=== PATIENT | male | born 1990 | race Caucasian/White ===

== ENCOUNTER 2018-07-23 14:37 | Emergency (ER) | payer OTHER, SELFPAY ==
--- NOTE | 2018-07-23 14:39 | W.ED.GENAD ---
Discharge Plan Disposition Patient Disposition: HOME Condition: Stable Discharge Details Chief Complaint: Abd Prob Clinical Impression: Abdominal pain ED Provider: Junaid Smith Discharge Instructions Instructions: Abdominal Pain (ED) Additional Instructions: Based on your lab work being normal, your physicial exam and cat scan being normal I suspect your symptoms are due to gastritis or an ulcer Follow up with your primary care provider in 1-2 weeks especially if symptoms continue if you feel your pain is significantly worse or you have new symptoms such as persistent vomit return to the emergency department for reevaluation Medical Decision Making 27 yo male who states he has a hx of gastritis/ulcers, and colitis, comes in with chief complaint of abdominal pain when he doesn't eat for a few horus. He denies vomit and has no pain now. Has no distention of the abdomen. I suspect his pain is due to duodenal ulcer given his pain comes on when he goes periods without eating. I did not feel any lab work or imaging indicated but the pt was very insistent on having lab work and a ct done despite me going over risks of radiatoin and has capacity to make his own decisions and still wants to have one done. Will order this and monitor. labs and imagagin per Dr. Minaya unremarkable. Will add carafate as I suspect ulcer and advised f/u with pcp and return precautions given Differential Diagnosis gastritis, duodenal ulcer, colitis Imaging Data Radiologic Study: Attestation: I personally reviewed and interpreted this imaging study as follows: Imaging: CT Scan Radiologist's impression: no acute findings per Dr. Minaya Lab Data Lab results reviewed: Yes I reviewed the patient's lab results. HPI General Mode of arrival: ambulatory. Date/Time Provider Initiated Documentation: 07/23/18 14:39. Limitations to Documentation: no limitations. Information obtained by: patient. History of Present Illness 27 year old M presents to the emergency department with the chief complaint of abdominal pain, described as moderate, with intensity rated at 5. Quality is described as burning, and it has been now resolved. No relieving factors improve symptom(s), No exacerbating factors reported . Patient notes no other symptoms.. Review of Systems Review of Systems All systems reviewed & are unremarkable except as noted in HPI and below Constitutional Denies weakness ENT Denies change in voice Cardiovascular Denies chest pain and Denies dyspnea Respiratory Denies dyspnea Gastrointestinal Denies vomiting Genitourinary Denies dysuria Musculoskeletal Denies joint swelling Integumentary/Breasts Denies rash Neurologic Denies weakness Exam Const General: no acute distress Orientation: alert HENMT Head: normal to inspection Ears: external ears normal General nose exam: external nose normal Mouth: moist mucous membranes Eyes General: appearance normal, both eyes and all related structures Neck Neck: normal visual inspection Resp Effort & Inspection: normal respiratory effort and able to speak in complete sentences Cardio Rate: regular rate GI Inspection: normal to inspection Palpation: soft Skin General skin exam: no rashes or lesions noted Neuro General: alert and oriented x3 Extrem General: normal to inspection Psych Mental Status: mental status grossly normal
[2018-07-23 14:41] VITALS: BP 151/90; PULSE 96; RESP 16; TEMP 37; O2SAT 98
--- NOTE | 2018-07-23 14:51 | DI.CT_ITS ---
SYMPTOMS/DIAGNOSIS: UPPER ABDOMINAL PAIN CT SCAN OF THE ABDOMEN AND PELVIS: CT scan of the abdomen and pelvis was performed following the uneventful administration of intravenous contrast material. There are no priors for comparison. The lung bases are clear. The liver is unremarkable. The portal, superior mesenteric and splenic veins are patent. The gallbladder is negative. There is no biliary ductal dilatation. The pancreas, spleen and adrenal glands are unremarkable. The kidneys show normal and symmetric enhancement. No evidence of a solid renal mass or obstruction. The urinary bladder is intact. The reproductive organs are unremarkable. The aorta is of normal caliber. No significant abdominal or pelvic adenopathy, ascites or pneumoperitoneum is present. The bowel shows no evidence of obstruction or inflammation. There is a normal appendix present. The lumbar spine shows no acute abnormality. IMPRESSION: No evidence of an acute abdomen. The findings were discussed with the Emergency Department on the date of the examination.
--- NOTE | 2018-07-23 14:56 | ED.GENADUL_ITS ---
Discharge Plan Disposition Patient Disposition: HOME Condition: Stable Discharge Details Chief Complaint: Abd Prob Clinical Impression: Abdominal pain ED Provider: Junaid Smith Discharge Instructions Instructions: Abdominal Pain (ED) Additional Instructions: Based on your lab work being normal, your physicial exam and cat scan being normal I suspect your symptoms are due to gastritis or an ulcer Follow up with your primary care provider in 1-2 weeks especially if symptoms continue if you feel your pain is significantly worse or you have new symptoms such as persistent vomit return to the emergency department for reevaluation Medical Decision Making 27 yo male who states he has a hx of gastritis/ulcers, and colitis, comes in with chief complaint of abdominal pain when he doesn't eat for a few horus. He denies vomit and has no pain now. Has no distention of the abdomen. I suspect his pain is due to duodenal ulcer given his pain comes on when he goes periods without eating. I did not feel any lab work or imaging indicated but the pt was very insistent on having lab work and a ct done despite me going over risks of radiatoin and has capacity to make his own decisions and still wants to have one done. Will order this and monitor. labs and imagagin per Dr. Minaya unremarkable. Will add carafate as I suspect ulcer and advised f/u with pcp and return precautions given Differential Diagnosis gastritis, duodenal ulcer, colitis Imaging Data Radiologic Study: Attestation: I personally reviewed and interpreted this imaging study as follows: Imaging: CT Scan Radiologist's impression: no acute findings per Dr. Minaya Lab Data Lab results reviewed: Yes I reviewed the patient's lab results. HPI General Mode of arrival: ambulatory . Date/Time Provider Initiated Documentation: 07/23/18 14:39 . Limitations to Documentation: no limitations . Information obtained by: patient . History of Present Illness 27 year old M presents to the emergency department with the chief complaint of abdominal pain, described as moderate, with intensity rated at 5. Quality is described as burning, and it has been now resolved. No relieving factors improve symptom(s), No exacerbating factors reported . Patient notes no other symptoms.. Review of Systems Review of Systems All systems reviewed & are unremarkable except as noted in HPI and below Constitutional Denies weakness ENT Denies change in voice Cardiovascular Denies chest pain and Denies dyspnea Respiratory Denies dyspnea Gastrointestinal Denies vomiting Genitourinary Denies dysuria Musculoskeletal Denies joint swelling Integumentary/Breasts Denies rash Neurologic Denies weakness Exam Const General: no acute distress Orientation: alert HENMT Head: normal to inspection Ears: external ears normal General nose exam: external nose normal Mouth: moist mucous membranes Eyes General: appearance normal, both eyes and all related structures Neck Neck: normal visual inspection Resp Effort & Inspection: normal respiratory effort and able to speak in complete sen tences Cardio Rate: regular rate GI Inspection: normal to inspection Palpation: soft Skin General skin exam: no rashes or lesions noted Neuro General: alert and oriented x3 Extrem General: normal to inspection Psych Mental Status: mental status grossly normal
[2018-07-23] MEDS: Normal Saline 1,000 ML 1000 ML IV (14:59)
[2018-07-23 15:04] LABS: Abs Immature Grans 0.02 k/cumm (0.0-0.09); Absolute Basophil Count 0.03 k/cumm (0.0-0.2); Absolute Eosinophil Count 0.07 k/cumm (0.0-0.7); Absolute Lymphocyte Count 2.18 k/cumm (1.2-3.4); Absolute Monocyte Count 0.56 k/cumm (0.11-0.7); Absolute Neutrophil Count 5.79 k/cumm (1.2-6.7); Basophils % 0.3; Eosinophils % 0.8; HCT 45.8 % (40.0-50.0); HGB 15.8 g/dL (13.5-17.5); Immature Grans % 0.2; Lymphocytes % 25.2; Mean Corp. HGB Concentration 34.5 g/dL (32.0-36.0); Mean Corpuscular Hemoglobin 30.3 pg (27.0-33.0); Mean Corpuscular Volume 87.9 fL (80-95); Mean Platelet Volume 10.5 fL (8.0-11.0); Monocytes % 6.5; Platelet Count 250 x1000/uL (130-400); RBC 5.21 m/cumm (4.50-6.00); RBC Distribution Width 12.5 % (11.8-14.1); White Blood Cell Count 8.65 k/cumm (4.4-10.8)
[2018-07-23 15:23] LABS: ALT 23 U/L (12-78); AST 12 U/L (15-37); Albumin 4.6 g/dL (3.4-5.0); Alkaline Phosphatase 75 U/L (46-116); Anion Gap 8.1 mmol/L (3-11); BUN 14 mg/dL (7-18); Bilirubin, Direct 0.17 mg/dL (0.00-0.20); Bilirubin, Total 0.9 mg/dL (0.2-1.0); CO2 30.9 mmol/L (21.0-32.0); CREATININE 1.03 mg/dL (0.70-1.30); Calcium 10.1 mg/dL (8.5-10.1); Chloride 100 mmol/L (98-107); Glucose 100 mg/dL (70-100); Lipase 81 U/L (73-393); Potassium 4.2 mmol/L (3.5-5.1); Sodium 139 mmol/L (136-145); Total Protein 8.7 g/dL (6.4-8.2)
[2018-07-23] MEDS: Omnipaque 350 MG/ML 100 ML BTL IJ (15:29)
[2018-07-23 16:10] VITALS: BP 124/77; PULSE 96; RESP 16; TEMP 37; O2SAT 98
== END 2018-07-23 16:09 | disposition home or self-care (01) ==
LOC: ER 17:46
PROVIDERS: Emergency Provider Emergency Medicine
DX: K52.9 Noninfective gastroenteritis and colitis, unspecified (principal)
CPT/HCPCS: 36415; 80053; 80076; 83690; 96360; 99285; 74177; 85025; 85379; 99284; J3490

== ENCOUNTER 2020-02-28 19:15 | Outpatient (REF) | payer MEDICAID, SELFPAY ==
[2020-02-28 19:53] LABS: HCT 40.4 % (40.0-50.0)
[2020-02-28 20:12] LABS: Anion Gap 8.7 mmol/L (3-11); BUN 18 mg/dL (7-18); CO2 27.3 mmol/L (21.0-32.0); CREATININE 1.01 mg/dL (0.70-1.30); Calcium 10.1 mg/dL (8.5-10.1); Calculated LDL 119 mg/dL (<100); Chloride 106 mmol/L (98-107); Cholesterol 166 mg/dL (<200); Glucose 80 mg/dL (74-106); HDL Cholesterol 40 mg/dL (40-60); Potassium 4.1 mmol/L (3.5-5.1); Sodium 142 mmol/L (136-145); Triglyceride 35 mg/dL (<150)
== END 2020-02-28 19:35 ==
LOC: NCHCN 19:15
PROVIDERS: PCP Physician Assistant; Visit Provider Physician Assistant
DX: Z13.220 Encounter for screening for lipoid disorders (principal); Z13.228 Encounter for screening for other metabolic disorders
CPT/HCPCS: 80048; 80061; 85014; 85018

== ENCOUNTER 2021-11-05 14:52 | Emergency (ER) | payer MEDICAID, SELFPAY ==
[2021-11-05] VITALS (14 sets, daily range): BP systolic 143–154; BP diastolic 73–96; PULSE 76–109; RESP 20; TEMP 36.6; O2SAT 95–100
--- NOTE | 2021-11-05 15:22 | DI.CT_ITS ---
Exam(s) CT CHEST/ABD/PEL W EXAM: CT CHEST/ABD/PEL W CLINICAL HISTORY: hx colitis, bloody diarrhea, cough w/ black stool. TECHNIQUE: Imaging Protocol: Axial computed tomography images with coronal and sagittal reformatted images were created and reviewed CONTRAST MATERIAL: Intravenous: Omnipaque 350 Contrast volume:100 ml Oral: no FINDINGS: CHEST: Tracheobronchial tree: Patent where visualized. Mediastinum and Coleen: No dominant adenopathy or fluid collection. Pulmonary parenchyma: No consolidation or dominant measurable mass. Pleura: No effusion or pneumothorax. Lymph nodes: Within normal limits. Aorta: Thoracic portion non-dilated. Heart: Normal. Bones: Mild scoliosis.. No lytic or blastic lesions. ABDOMEN: Liver: Normal density. No measurable mass. Gallbladder and biliary tract: No radiodense calculus or dilation. Pancreas: Normal density, no abnormal calcifications or inflammatory process. Spleen: Normal. Kidneys: Normal size, contour and axis. Punctate stone mid to lower pole right kidney. No obstructiv e uropathy. No masses seen. Adrenal glands: No masses seen. Aorta: Abdominal portion non-dilated. Lymph nodes: Within normal limits. Soft tissues: Unremarkable. PELVIS: Bladder: Symmetric distention, no gross wall thickening. Bowel: Normal quantity of stool. No visible mass. No obstruction or bowel wall thickening. Appendix normal. Peritoneal cavity: No ascites, collection or mesenteric inflammatory response. Bones: Unremarkable for age.. Reproductive organs: Within normal limits. IMPRESSION: No acute abnormality in the chest abdomen or pelvis.. Results of this exam have been verbally communicated with emergency department provider. RADIATION DOSE DELIVERED: Total DLP DATA REPOSITORY: All CT scans at this facility are submitted to the National Radiology Data Registry (NRDR) Dose Index Registry (DIR) with the [employer] (A[employer]). RADIATION OPTIMIZATION: All CT scans at this facility use at least one of these dose optimization te chniques: automated exposure control; mA and/or kV adjustment per patient size (includes targeted exa ms where dose is matched to clinical indication); or iterative reconstruction.
--- NOTE | 2021-11-05 15:26 | ED.GENADUL_ITS ---
Discharge Plan Disposition Patient Disposition: HOME Condition: Good Discharge Details Clinical Impression: Fatigue, Frequent loose stools, Dehydration Primary Care Provider: Feliciano Pierson ED Provider: Ernie Kowalski Home Meds and New Rx's Prescriptions: Continued clonazepam 0.5 mg Tablet 0.5 mg PO TID 0RF omeprazole 40 mg Capsule,Delayed Release(Dr/Ec) 40 mg PO DAILY AM 0RF amoxicillin 500 mg Tablet 1,000 mg PO 0RF Rx Instructions: directed by dentist Discharge Instructions Instructions: Dehydration (ED), Acute Diarrhea (ED) Additional Instructions: As soon as you have a bowel movement, please bring it in for evaluation with the lab slips that we have given you please continue drinking plenty of fluids, I recommend 10 to 12 cups of water per day. Stay well-hydrated. Eat a high-fiber diet to help solidify your stools. If you notice any worsening of your symptoms, or any new symptoms such as vomiting, diarrhea, fever, chills, shortness of breath, chest pain, numbness, weakness, or fainting , please return immediately to the emergency department for reevaluation. Please follow up with your primary care provider as soon as possible for reassessment and reevaluation. As always, it was a pleasure participating in your medical care today. Referrals: Feliciano Pierson [Primary Care Provider] - Medical Decision Making 30-year-old male with a past medical history of previous colitis, depression, who presents today for evaluation of cough, diarrhea, weakness, fatigue, notable malaise. Patient has not received a vaccine for COVID with the flu. Patient states that for the last 4-week he has had cough and diarrhea. He states his diarrhea has had 4-5 episodes of stooling per day. It is watery and partially formed in nature. He states that there is a notable amount of black stool that is present. He has a history of colitis and states that this looks similar. He denies any hematochezia or raffaele blood. He denies any vomiting. He does admit to mild upset stomach feeling, but denies any significant pain. He describes as gurgling. In regards to the cough he admits that it is productive, it is mild in nature. He admits to occasional black sputum. He denies any fever or chills but does feel extremely fatigued. Patient does smoke marijuana but recently stopped when his cough began 4 weeks ago. He denies any other illicit drug use otherwise. He denies any recent foreign travel. No camping. He did just have a tooth pulled today, and was started on antibiotic amoxicillin for it. He had not been on an antibiotic prior though. No other c omplaints at this time. Physical exam demonstrates a nonsurgical appearing abdomen. Mild achiness on palpation of the left lower quadrant. Lung sounds are clear. Mucosa is dry. Differential includes a viral etiology, including COVID or flu. However with his history of colitis this may also be a component to. There may be multiple things going on together as he has become notably more fatigued and malaised over the last few days. We will get a CT scan of the abdomen to evaluate for presence of colitis, and we will get imaging of the chest to evaluate for evidence of pneumonia. He otherwise has no chest pain or shortness of breath. No chest heaviness or tightness. Symptoms inconsistent with ACS or pulmonary embolism. COVID-pneumonia or atypical pneumonia are high on the differential. 5:38 PM Patient is feeling much better, repeat abdominal exam shows no abdominal tenderness. Patient feels well, energy has improved. Laboratory results and/or images were reviewed. Pertinent findings were reviewed with care team and discussed with patient. And work-up are notably unremarkable, hemoglobin stable, heart rate has normalized. No bandemia or left shift. Electrolytes stable, no signs of significant dehydration. Urinalysis negative for evidence of infection, flu, COVID, and RSV are negative. Patient has not been able to have a bowel movement here. We will send him home with a lab slip. CT scan shows no evidence of acute process. There is a small nonobstructing kidney stone in the right kidney, but the patient has no pain here. Otherwise with a stable work-up, patient is stable for discharge. Suspect mild dehydration secondary to persistent diarrhea. But no signs of GI bleed. No diarrhea here, and rectal exam was negative for any stool or blood. Recommend high-fiber diet, plenty of fluids at home, and close follow-up with PCP. Discussed red flags which return. I have extensively reviewed the treatment plan and discharge instructions with the patient. I have addressed all patient concerns at this time. The patient was made aware of what symptoms to monitor for that would warrant a return to the emergency department. Discussed the plan with the patient, they demonstrate verbal understanding and agreement with our assessment and plan at this time. The documentation in this chart was dictated using [employer] dictation software. Please excuse any dictation errors. FINDINGS: CHEST: Tracheobronchial tree: Patent where visualized. Mediastinum and Coleen: No dominant adenopathy or fluid collection. Pulmonary parenchyma: No consolidation or dominant measurable mass. Pleura: No effusion or pneumothorax. Lymph nodes: Within normal limits. Aorta: Thoracic portion non-dilated. Heart: Normal. Bones: Mild scoliosis.. No lytic or blastic lesions. ABDOMEN: Liver: Normal density. No measurable mass. Gallbladder and biliary tract: No radiodense calculus or dilation. Pancreas: Normal density, no abnormal calcifications or inflammatory process. Spleen: Normal. Kidneys: Normal size, contour and axis. Punctate stone mid to lower pole right kidney. No obstructive uropathy. No masses seen. Adrenal glands: No masses seen. Aorta: Abdominal portion non-dilated. Lymph nodes: Within normal limits. Soft tissues: Unremarkable. PELVIS: Bladder: Symmetric distention, no gross wall thickening. Bowel: Normal quantity of stool. No visible mass. No obstruction or bowel wall thickening. Appendix normal. Peritoneal cavity: No ascites, collection or mesenteric inflammatory response. Bones: Unremarkable for age.. Reproductive organs: Within normal limits. IMPRESSION: No acute abnormality in the chest abdomen or pelvis.. Results of this exam have been verbally communicated with emergency department provider. HPI General Date/Time Provider Initiated Documentation: 11/05/21 14:56 . HPI Narrative: 30-year-old male with a past medical history of previous colitis, depression, who presents today for evaluation of cough, diarrhea, weakness, fatigue, notable malaise. Patient has not received a vaccine for COVID with the flu. Patient states that for the last 4-week he has had cough and diarrhea. He states his diarrhea has had 4-5 episodes of stooling per day. It is watery and partially formed in nature. He states that there is a notable amount of black stool that is present. He has a history of colitis and states that this looks similar. He denies any hematochezia or raffaele blood. He denies any vomiting. He does admit to mild upset stomach feeling, but denies any significant pain. He describes as gurgling. In regards to the cough he admits that it is productive, it is mild in nature. He admits to occasional black sputum. He denies any fever or chills but does feel extremely fatigued. Patient does smoke marijuana but recently stopped when his cough began 4 weeks ago. He denies any other illicit drug use otherwise. He denies any recent foreign travel. No camping. He did just have a tooth pulled today, and was started on antibiotic amoxicillin for it. He had not been on an antibiotic prior though. No other complaints at this time. Related Data Home Medications Medication Instructions Recorded Confirmed amoxicillin 500 mg tablet 1,000 mg PO 11/05/21 clonazepam 0.5 mg tablet 0.5 mg PO TID 11/05/21 11/05/21 omeprazole 40 mg capsule,delayed 40 mg PO DAILY AM 11/05/21 11/05/21 release Allergies Allergy/AdvReac Type Severity Reaction Status Date / Time No Known Allergies Allergy Unverified 11/05/21 15:08 General Stated Complaint: Nausea/Vomit/Diar NATHANIEL: 3 Review of Systems All systems reviewed & are unremarkable except as noted in HPI and below PFSH All Active Problems (Updated 11/05/21 @ 17:35 by Ernie Kowalski DO) Fatigue (Acute) Frequent loose stools (Acute) Dehydration (Acute) Social History Smoking/Tobacco Use Status: Former Tobacco Use Smoking risk assessment performed?: Yes Alcohol Intake: never Drug use: Never Do you feel safe in your relationship?: Yes Exam Narrative Exam Narrative: 1.Const: Well-nourished, Well-developed, appearing stated age 2.Eyes: PERRL, no conjunctival injection, and symmetrical lids. 3.ENT: Atraumatic external nose and ears. Dry MM. Neck: Symmetric, trachea midline, No thyromegaly. 4.CVS: +S1/S2, No murmurs or gallops. Peripheral pulses 2+ and equal in all extremities. Brisk capillary refill in all extremities. 5.RESP: Unlabored respiratory effort. Clear to auscultation bilaterally. No wheezes rales or rhonchi 6.GI: Soft, minimal achiness in the left lower quadrant. No significant tenderness. No guarding or rebound. Bowel sounds are notably active. Rectal exam demonstrates no evidence of fissures or lesions or anal tags. No gross blood. Hemoccult was negative. 7.MSK: Normocephalic/Atraumatic, Extremities w/o deformity or ttp No cyanosis or clubbing, Normal movement of all extremities 8.Skin: Warm, Dry. No rashes or lesions. 9.Neuro: manager corporate marketing II-XII grossly intact. Sensation grossly intact, no focal neurologic deficits. 10.Psych: (AAO) x3. Appropriate mood and affect Course Vital Signs Vital signs: Vital Signs Temperature 36.6 C 11/05/21 15:03 Pulse 109 H 11/05/21 15:03 Respiratory Rate 20 11/05/21 15:03 Blood Pressure 143/96 H 11/05/21 15:03 Pulse Oximetry 99 11/05/21 15:03 Temperature 36.6 C 11/05/21 15:03 Temperature Source Temporal Artery Scan 11/05/21 15:03 Pulse 109 H 11/05/21 15:03 Respiratory Rate 20 11/05/21 15:03 Respiratory Effort 11/05/21 15:10 Blood Pressure 143/96 H 11/05/21 15:03 Blood Pressure Position Supine 11/05/21 15:03 Pulse Oximetry 99 11/05/21 15:03 Oxygen Delivery Method Room Air 11/05/21 15:03 Oxygen Flow Rate 0 11/05/21 15:03 Pain Level 0 11/05/21 15:03
[2021-11-05 15:38] LABS: Abs Immature Grans 0.02 10^3/uL (0.0-0.06); Absolute Basophil Count 0.03 10^3/uL (0.0-0.2); Absolute Eosinophil Count 0.03 10^3/uL (0.0-0.7); Absolute Lymphocyte Count 2.49 10^3/uL (1.2-3.4); Absolute Monocyte Count 0.57 10^3/uL (0.1-0.8); Absolute Neutrophil Count 6.98 10^3/uL (1.2-6.7); Basophils % 0.3; Eosinophils % 0.3; HCT 40.2 % (40.0-50.0); HGB 14.1 g/dL (13.5-17.5); Immature Grans % 0.2; Lymphocytes % 24.6; MCH 30.5 pg (27.0-33.0); MCHC 35.1 % (32.0-36.0); MCV 87 fL (80-95); MPV 10.8 fL (8.0-11.0); Monocytes % 5.6; Platelet Count 266 10^3/uL (130-400); RBC 4.62 10^6/uL (4.36-5.78); RDW 12.5 % (11.8-14.1); RDW-SD 39.5 fL; WBC 10.12 10^3/uL (4.4-10.8)
[2021-11-05] MEDS: Normal Saline 1,000 ML 1000 ML IV (15:45)
[2021-11-05] MEDS: Dicyclomine 10 MG CAP PO (15:45)
[2021-11-05 16:02] LABS: Ammonia 14 umol/L (11-32)
[2021-11-05 16:25] LABS: ALT 30 U/L (16-63); AST 20 U/L (15-37); Albumin 4.8 g/dL (3.4-5.0); Alkaline Phosphatase 78 U/L (46-116); Anion Gap 11.2 mmol/L (3-11); BUN 9 mg/dL (7-18); Bilirubin, Total 0.7 mg/dL (0.2-1.0); CO2 24.8 mmol/L (21.0-32.0); COVID-19 PCR Negative (Negative); Chloride 104 mmol/L (98-107); Glucose 96 mg/dL (74-106); Influenza A PCR Negative (Negative); Influenza B PCR Negative (Negative); Potassium 3.9 mmol/L (3.5-5.1); RSV PCR Negative (Negative); Sodium 140 mmol/L (136-145)
[2021-11-05 16:26] LABS: Source Nasopharynx
[2021-11-05] MEDS: Omnipaque 350 MG/ML 100 ML BTL IJ (16:32)
[2021-11-05] MEDS: Normal Saline Flush 10 ML SYR IVP (16:33)
[2021-11-05 17:30] LABS: Bilirubin Negative (Negative); Blood Negative (Negative); Clarity Clear (Clear); Glucose Negative (Negative); Ketones Negative (Negative); Leukocyte Esterase Negative (Negative); Nitrite Negative (Negative); Specific Gravity >= 1.030 (1.005-1.025); Urobilinogen 0.2 EU/dL (Up TO 0.2); pH 6.5 (5-8)
== END 2021-11-05 17:49 | disposition home or self-care (01) ==
PROVIDERS: Emergency Provider Student in an Organized Health Care Education/Training Program; PCP Physician Assistant
DX: R53.83 Other fatigue (principal); R19.7 Diarrhea, unspecified; E86.0 Dehydration; R10.32 Left lower quadrant pain; R05.1 Acute cough
CPT/HCPCS: 36415; 74177; 80053; 87329; 87637; 96360; 99285; 71260; 81003; 82140; 85025; J3490

== ENCOUNTER 2021-11-26 19:14 | Outpatient (REF) | payer MEDICAID, SELFPAY ==
[2021-11-28 09:53] LABS: Hepatitis C Ab w Rflx HCV PCR Negative (Negative)
[2021-11-28 10:03] LABS: HIV-1/2 Ag & Ab Screen Negative (Negative)
== END 2021-11-26 19:15 | disposition home or self-care (01) ==
LOC: NCHCN 19:14
PROVIDERS: PCP Physician Assistant; Visit Provider Physician Assistant
DX: Z11.4 Encounter for screening for human immunodeficiency virus [HIV] (principal); Z11.59 Encounter for screening for other viral diseases
CPT/HCPCS: 86803; 87389

== ENCOUNTER 2021-12-23 09:58 | Inpatient (IN) | payer MEDICAID, SELFPAY ==
[2021-12-23 10:02] VITALS: BP 152/93; PULSE 90; RESP 17; TEMP 36.7; O2SAT 98
--- NOTE | 2021-12-23 10:22 | ED.GENADUL_ITS ---
Discharge Plan Disposition Patient Disposition: [facility] INPATIENT Condition: Stable Discharge Details Clinical Impression: Homicidal ideation, Psychiatric care Admit Date/Time: 12/23/21 12:49 Admit Provider: Sunny Livingston Attending Provider: Sunny Livingston Primary Care Provider: Feliciano Pierson ED Provider: Isabel Aviles Discharge Data Discharge Date/Time-TO BE ENTERED AT DEPARTURE: 12/23/21 13:28 Medical Decision Making 31-year-old male presents to the ER company by [facility] for suicidal and homicidal statements made via text prior to arrival. Patient reports that over the last few days she is been more anxious and depressed he also reports some increased tooth pain and some dental issues. He has been in contact with [facility] over the last few days. He was told that there was a warrant out for him. He denies taking anything or doing anything to harm himself for the last few days. He is alert oriented upon arrival. He does appear depressed and anxious, lack of eye contact. Upon initial presentation he is cooperative. Patient initially denies sending the homicidal text regarding his mother's boyfriend however he does endorse that he stated if he comes near me I will kill him. Past medical history includes anxiety depression and GERD. Patient reports he takes Klonopin up to 3 times daily as needed for anxiety and has been trying to wean himself off recently. Patient also reports that he stopped using marijuana 1 to 2 weeks ago. 1040: According to the [facility] medical clearance form patient is medically cleared. NEDRA called Kadi called back and will be coming in to evaluate patient. Interim behavioral safety plan and C PSO ordered patient is in line of sight of nurses station placed in paper scrubs and belongings were collected by medical staff coordinator. 1205: Spoke with Kadi with [facility] Mental health liason regarding patient she reports that they will be seeking voluntary placement at this time. She reports they wish to be notified of patient tries to leave. At this time patient has remained cooperative and calm. 1233: Hospitalist paged to request admission for observation for psychiatric voluntary placement. 1247: Spoke with Dr. Canela regarding patient case and details he agrees to accept patient for admission for observation pending psychiatric placement. Discussed plan of care with patient who verbalizes understanding and is in agreement with the plan. HPI General Mode of arrival: ambulatory . Date/Time Provider Initiated Documentation: 12/23/21 09:59 . Limitations to Documentation: no limitations . Information obtained by: patient, RN notes reviewed and old records reviewed . HPI Narrative: 31-year-old male presents to the ER company by [facility] for suicidal and homicidal statements made via text prior to arrival. Patient reports that over the last few days she is been more anxious and depressed he also reports some increased tooth pain and some dental issues. He has been in contact with [facility] services over the last few days. He was told that there was a warrant out for him. He denies taking anything or doing anything to harm himself for the last few days. He is alert oriented upon arrival. He does appear depressed and anxious, lack of eye contact. Upon initial presentation he is cooperative. Patient initially denies sending the homicidal text regarding his mother's boyfriend however he does endorse that he stated if he comes near me I will kill him. Past medical history includes anxiety depression and GERD. Patient reports he takes Klonopin up to 3 times daily as needed for anxiety and has been trying to wean himself off recently. Patient also reports that he stopped using marijuana 1 to 2 weeks ago. Related Data Home Medications Medication Instructions Recorded Confirmed clonazepam 0.5 mg tablet 0.5 mg PO TID 11/05/21 12/23/21 omeprazole 40 mg capsule,delayed 40 mg PO DAILY AM 11/05/21 12/23/21 release Allergies Allergy/AdvReac Type Severity Reaction Status Date / Time No Known Allergies Allergy Unverified 12/23/21 11:27 General Stated Complaint: PsychEval NATHANIEL: 2 Review of Systems All systems reviewed & are unremarkable except as noted in HPI and below Constitutional Constitutional: Reports as per HPI ENT Ears, Nose, Mouth, and Throat: Reports dental pain Cardiovascular Cardiovascular: Denies chest pain and Denies dyspnea Respiratory Respiratory: Denies dyspnea Gastrointestinal Gastrointestinal: Denies abdominal pain, Reports diarrhea, Denies nausea and Denies vomiting Psychiatric Psychiatric: Reports anxiety, Reports depression and Reports homicidal ideation PFSH All Active Problems (Updated 12/23/21 @ 12:47 by Isabel Aviles NP) Homicidal ideation (Acute) Psychiatric care (Acute) Social History Smoking/Tobacco Use Status: Former Tobacco Use Smoking risk assessment performed?: Yes Alcohol Intake: never Drug use: Never Substance use type: does not use Details: Stopped marijuana 1 week- 2 weeks ago Do you feel safe in your relationship?: Yes Exam Narrative Exam Narrative: Constitutional: Alert and oriented x3. Appears stated age. Normal body habitus. Head: Normocephalic, no trauma. Eyes: Pupils PERRL, Red reflex noted, EOM's intact. Eyelids symmetrical without lesions, discharge, or swelling. ENT: Bilateral TM's WNL, External ear normal to inspection, no mastoid TTP, swelling, or erythema, Nasal turbinates WNL, no nasal discharge. Normal dentition, see dental exam below, posterior pharynx WNL, no exudate. Chest: RRR, Normal S1, S2, distal pulses intact. Resp: Lungs clear to auscultation bilaterally, no wheezes, rales, or rhonchi. Abdomen: Soft, non-distended, Normoactive bowel sounds all 4 quads. Musculoskeletal: Normal gait, 5/5 strength to all four extremities. Skin: No suspicious rashes or lesions. Capillary refill less than 2 sec. Neurologic: Cranial nerves II-XII intact. Alert and oriented x 3. Motor: No deficits noted. Sensory: Intact bilaterally all 4 extremities. Psychiatric: See below, Hematologic/Lymphatic: No ecchymosis, no lymphadenopathy. HENMT Head: normal to inspection Teeth image: 1. Small Cavity noted no surrounding erythema no abscess no extensive gingival fluctuance no edema Psych Appearance: well kempt Speech and Movement: agitated and slowed movement Mood: anxious mood and irritable mood Affect: indifferent and irritable affect Attitude: guarded and avoids eye contact Thought Process: flight of ideas Thought Content: homicidality and suicidality Insight: insight good Judgment: fair Course Vital Signs Vital signs: Vital Signs Temperature 36.7 C 12/23/21 10:02 Pulse 90 12/23/21 10:02 Respiratory Rate 17 12/23/21 10:02 Blood Pressure 152/93 H 12/23/21 10:02 Pulse Oximetry 98 12/23/21 10:02 Temperature 36.7 C 12/23/21 10:02 Temperature Source Oral 12/23/21 10:02 Pulse 90 12/23/21 10:02 Respiratory Rate 17 12/23/21 10:02 Respiratory Effort Non-Labored 12/23/21 10:18 Blood Pressure 152/93 H 12/23/21 10:02 Pulse Oximetry 98 12/23/21 10:02 Oxygen Delivery Method Room Air 12/23/21 10:02 Oxygen Flow Rate 0 12/23/21 10:02 Pain Level 0 12/23/21 10:02
[2021-12-23] MEDS: LORazepam 0.5 MG TAB PO (10:24)
[2021-12-23 10:41] LABS: Abs Immature Grans 0.01 10^3/uL (0.0-0.06); Absolute Basophil Count 0.04 10^3/uL (0.0-0.2); Absolute Eosinophil Count 0.09 10^3/uL (0.0-0.7); Absolute Lymphocyte Count 3.45 10^3/uL (1.2-3.4); Absolute Monocyte Count 0.65 10^3/uL (0.1-0.8); Basophils % 0.5; Eosinophils % 1.2; HCT 45.4 % (40.0-50.0); HGB 15.8 g/dL (13.5-17.5); Immature Grans % 0.1; Lymphocytes % 45.8; MCH 31.2 pg (27.0-33.0); MCHC 34.8 % (32.0-36.0); MCV 90 fL (80-95); MPV 10.1 fL (8.0-11.0); Monocytes % 8.6; Neutrophils % 43.8; Platelet Count 316 10^3/uL (130-400); RBC 5.07 10^6/uL (4.36-5.78); RDW 12.6 % (11.8-14.1); RDW-SD 41.4 fL; WBC 7.54 10^3/uL (4.4-10.8)
[2021-12-23 10:44] LABS: Bilirubin Negative (Negative); Blood Negative (Negative); Clarity Clear (Clear); Glucose Negative (Negative); Ketones Negative (Negative); Leukocyte Esterase Negative (Negative); Nitrite Negative (Negative); Specific Gravity >= 1.030 (1.005-1.025); Urobilinogen 0.2 EU/dL (Up TO 0.2)
[2021-12-23 10:57] LABS: Tricyclic Antidepressants Negative (Negative)
[2021-12-23 11:04] LABS: *AMPHETAMINES SCREEN URINE Negative (Negative); *BARBITURATES SCREEN URINE Negative (Negative); *BENZODIAZEPINES SCREEN URINE Negative (Negative); Cannabinoids THC Positive (Negative); Cocaine Screen,Urine Negative (Negative); METHADONE URINE SCREEN Negative (Negative); OPIATES URINE SCREEN Negative (Negative)
[2021-12-23 11:09] LABS: Salicylate < 2.8 mg/dL (<2.8)
[2021-12-23 11:10] LABS: Acetaminophen < 2 ug/mL (10-30)
[2021-12-23 11:12] LABS: ALT 50 U/L (16-63); AST 25 U/L (15-37); Albumin 4.8 g/dL (3.4-5.0); Alkaline Phosphatase 85 U/L (46-116); Anion Gap 14.5 mmol/L (3-11); BUN 20 mg/dL (7-18); Bilirubin, Total 1.2 mg/dL (0.2-1.0); CO2 25.5 mmol/L (21.0-32.0); CREATININE 0.9 mg/dL (0.70-1.30); Calcium 9.9 mg/dL (8.5-10.1); Chloride 101 mmol/L (98-107); Glucose 109 mg/dL (74-106); Potassium 3.8 mmol/L (3.5-5.1); Sodium 141 mmol/L (136-145); TSH (W/Ref FT4) 2.99 uIU/mL (0.36-3.74); Total Protein 8.8 g/dL (6.4-8.2)
[2021-12-23 11:13] LABS: ETHANOL BLOOD < 3.0 mg/dL (<10)
[2021-12-23 12:53] LABS: Source Nasal/Nares
[2021-12-23] MEDS: Acetaminophen 500 MG TAB PO (13:00)
[2021-12-23 13:42] LABS: COVID-19 PCR Negative (Negative)
--- NOTE | 2021-12-23 14:22 | CMSP_ITS ---
- If Service Date Differs Date of service: 12/23/21 Time of Service: 14:22 Care Management Safety Plan Status: Voluntary - Reason for Wait Reason for Wait: Inpatient Admission Carloz is a 31 year old male brought to the ED by [facility], after failing to comply with his safety plan which was created on 12/21/21 between himself and [facility] staff. Per report, he has been making homicidal threats to his father and step mother. He recently moved to [place] from [place], where he was reportedly incarcerated for DUI/assault. He is currently living in a condo owned by his father, and is concerned that if he goes to a facility for treatment, he will not be allowed to return to his condo. Per report, he has only made verbal threats (by phone/text), and has not been physically aggressive. [facility] created a plan for Carloz to seek treatment on Friday, and when P went to his home for a check in (after not answering check in calls), he stated that he is no longer seeking treatment. He was brought to the ED on a warrant for emergency evaluation. Once in the ED, he agreed to remain voluntarily to seek inpatient treatment. He was transitioned to med/surge approximately 2.5 hours after he arrived to the ED. Referrals have been sent to , , [facility], and [facility]. A huddle was held with VARSHA Nagy Scow Captain; VARSHA Paulino Coordinator; VARSHA Alonso; and MARY Wahl. If Carloz chooses to leave and not seek treatment, staff will provide him with his belongings and escort him to the exit. [facility] and [facility] will be notified, who will likely seek a warrant for involuntary treatment. VOLUNTARY FOR INPATIENT PSYCHIATRIC STABILIZATION. Patient is appropriate in all interactions since arriving at [facility]; Pt has demonstrated appropriate coping and communication skills, has articulated his or her needs and concerns and is fully engaged during staff interactions. Safety plan has been established with patient, and care team, to adhere to patient goals, identify restrictions based on behavioral status, address nutrition, and determine allowed personal belongings, tools for hygiene and personal care. Determine level of activity including ambulation, level of supervision, visitors, and determine privileges based on behaviors and level of engagement by pt. SAFETY PLAN: 1. Will remain on suicide precautions. In Paper Clothes 2. Will remain in room under direct supervision of one-on-one staff at all times provided by CPSO; CANDE, CLAY CASTER mold inspector. 3. May have paper cups, plates, finger foods as well as a cardboard spoon with which to eat meals. 4. Follow [facility] Management of the Admitted Behavioral Health Patient policy. 5. Comfort bath system or shower permitted with escort at RN discretion. 6. No personal belongings-soft items permitted at RN discretion. 7. Visitors-none at this time. 8. Activities: TV, soft cart items approved per RN discretion. 9. Bathroom privileges with escort in the ED, available in room without limitation on M/S. 10. Phone: limited to legal [place], [facility] staff. 11. Due to VOLUNTARY status, if patient wishes to leave [facility], staff will contact [facility] Crisis Screener ([phone]) and On-Call Heel Attacher ([phone]) as soon as possible. In the event of elopement, notify [facility] Police ([phone]). Patient is currently voluntarily at [facility] and seeking inpatient admission when a bed becomes available. [facility] Frontline Security Agent will continue seeking placement. Please contact the Belt Measurer Heel Attacher ([phone]) and [facility] Security Agent ([phone]) for any needed changes in the Safety Plan. Safety plan has been provided to interdepartmental care team.
[2021-12-23 16:05] VITALS: BP 144/70; PULSE 77; RESP 18; TEMP 36; O2SAT 99
--- NOTE | 2021-12-23 16:20 | HPE_ITS ---
Date of service: 12/23/21 Time of Service: 16:20 Assessment and Plan Assessment and plan (1) Homicidal ideation: Start date: 12/23/21 Start time: 16:23 Status: Acute Assessment and plan: Plan to send to facility; he is willing to go volunarily, (2) Psychiatric care: Start date: 12/23/21 Start time: 16:23 Status: Acute Assessment and plan: As above Reviewed POC with Dr Livingston (3) Discharge planning issues: Status: Acute Assessment and plan: Case mgt sending referrals History of Present Illness History of Present Illness Chief Complaint: The psych people said I have to stay Narrative: This 31 year old male, , brought to the ED by P for threatening to kill his father and his . He has had mental health and police working with him since Friday. He failed to maintain the safety plan and was brought back to the ED today. He is a voluntary admission (other option was fpc). He denies suicidal ideation; he denies drugs, (urine culture positive for THC) alcohol, tobacco. He states he does not want to go anywhere, he will not take any medications and does not need counseling. He states he is concerned his father is going to [employer]. Reviewed with Dr Livingston Review of Systems All systems reviewed & are unremarkable except as noted in HPI and below PFSH All Active Problems Discharge planning issues (Acute) Homicidal ideation (Acute) Psychiatric care (Acute) Social History Smoking/Tobacco Use Status: Former Tobacco Use Smoking risk assessment performed?: Yes Alcohol Intake: never Drug use: Never Substance use type: does not use Details: Stopped marijuana 1 week- 2 weeks ago Do you feel safe in your relationship?: Yes Meds Allergies and Home Medications Allergies Allergy/AdvReac Type Severity Reaction Status Date / Time No Known Allergies Allergy Unverified 12/23/21 11:27 Home Medications Medication Instructions Recorded Confirmed Type clonazepam 0.5 mg tablet 0.5 mg PO TID 11/05/21 12/23/21 History omeprazole 40 mg capsule,delayed 40 mg PO DAILY AM 11/05/21 12/23/21 History release Exam Narrative Exam Narrative: Exam Narrative: GEN: awake, alert, oriented 3. Pleasant, well groomed, in teractive. HEAD: Normocephalic, atraumatic ENT: Mucous membranes moist, oropharynx unremarkable, External ear exam unremarkable EYES: PERRL, EOMI NECK: Full ROM, no NASIR, no menigismus CHEST/RESP: Nontender, clear to auscultation bilateral, no wheeze/rhonchi/rales CARDIOVASCULAR: RRR, no murmur, rub bernard. 2+ Rad pulse bilateral ABDOMEN: Soft, nontender. +Bowel sounds EXT: Full ROM, no edema, no rash Neuro: Grossly normal neurologic exam, conversant, interactive. Psych: Speech fluent, good eye contact, affect normal Results Labs Result diagrams: 12/23/21 10:33 12/23/21 10:33 Labs: Laboratory Results - last 24 hr 12/23/21 12/23/21 12/23/21 10:24 10:24 10:33 WBC RBC Hgb Hct MCV MCH MCHC RDW Plt Count MPV Immature Gran % Neutrophils % Lymphocytes % Monocytes % Eosinophils % Basophils % Nucleated RBC % Absolute Neutrophils Absolute Lymphocytes Absolute Monocytes Absolute Eosinophils Absolute Basophils Sodium 141 Potassium 3.8 Chloride 101 Carbon Dioxide 25.5 Anion Gap 14.5 H BUN 20 H Creatinine 0.9 Estimated GFR/1.73 m2 >= 60.00 Glucose 109 H Calcium 9.9 Total Bilirubin 1.2 H AST 25 ALT 50 Alkaline Phosphatase 85 Total Protein 8.8 H Albumin 4.8 TSH 2.99 Urine Color Yellow Urine Clarity Clear Urine pH 6.0 Ur Specific [place] >= 1.030 H Urine Protein Negative Urine Ketones Negative Urine Blood Negative Urine Nitrite Negative Urine Bilirubin Negative Urine Urobilinogen 0.2 Ur Leukocyte Esterase Negative Urine Glucose Negative Salicylates Urine Opiates Screen Negative Urine Methadone Screen Negative Acetaminophen Ur Barbiturates Screen Negative Ur Tricyclics Screen Negative Ur Amphetamines Screen Negative U Benzodiazepines Scrn Negative Urine Cocaine Screen Negative Ur THC Screen Positive A Ethyl Alcohol < 3.0 COVID-19 Source SARS-CoV-2 (PCR) 12/23/21 12/23/21 12/23/21 10:33 10:33 12:49 WBC 7.54 RBC 5.07 Hgb 15.8 Hct 45.4 MCV 90 MCH 31.2 MCHC 34.8 RDW 12.6 Plt Count 316 MPV 10.1 Immature Gran % 0.1 Neutrophils % 43.8 Lymphocytes % 45.8 Monocytes % 8.6 Eosinophils % 1.2 Basophils % 0.5 Nucleated RBC % 0.0 Absolute Neutrophils 3.30 Absolute Lymphocytes 3.45 H Absolute Monocytes 0.65 Absolute Eosinophils 0.09 Absolute Basophils 0.04 Sodium Potassium Chloride Carbon Dioxide Anion Gap BUN Creatinine Estimated GFR/1.73 m2 Glucose Calcium Total Bilirubin AST ALT Alkaline Phosphatase Total Protein Albumin TSH Urine Color Urine Clarity Urine pH Ur Specific [place] Urine Protein Urine Ketones Urine Blood Urine Nitrite Urine Bilirubin Urine Urobilinogen Ur Leukocyte Esterase Urine Glucose Salicylates < 2.8 Urine Opiates Screen Urine Methadone Screen Acetaminophen < 2 Ur Barbiturates Screen Ur Tricyclics Screen Ur Amphetamines Screen U Benzodiazepines Scrn Urine Cocaine Screen Ur THC Screen Ethyl Alcohol COVID-19 Source Nasal/Nares SARS-CoV-2 (PCR) Negative Last Vital Signs Temp 36 C L 12/23/21 16:05 Pulse 77 12/23/21 16:05 Resp 18 12/23/21 16:05 BP 144/70 H 12/23/21 16:05 Pulse Ox 99 12/23/21 16:05
[2021-12-23 19:45] VITALS: BP 117/82; PULSE 79; RESP 18; TEMP 36.4; O2SAT 96
[2021-12-23] MEDS: Acetaminophen 500 MG TAB 1000 MG PO (20:17)
[2021-12-23] MEDS: clonazePAM 0.5 MG TAB PO (20:17)
--- NOTE | 2021-12-23 20:20 | NUR.NOTE ---
Nursing Note: Patient has concerns about missing his dental appt tomorrow 12/24/21 @ 15:30. Patient mentioned alot of his agitation recently is worsened when his mouth hurts. Im getting really pissed off, no one has even came to speak to me he stated. PRN 1,000mg APAP for mouth pain 8:10 and Scheduled Clonazapam was given per patient request.
[2021-12-24] MEDS: Acetaminophen 500 MG TAB 1000 MG PO (01:24)
--- NOTE | 2021-12-24 04:36 | NUR.NOTE ---
Nursing Note: Junaid from [facility] called for a patient update and any overnight events. Junaid informed of patients medication he received this shift and his concerns for missing a dental appt today @ 15:30.
--- NOTE | 2021-12-24 05:08 | NUR.NOTE ---
Nursing Note: Patient is awake sitting up in bed and is requesting his anti- anxiety medication. I'm losing it patient stated to DIRECTOR NETWORK DEVELOPMENT sitting with patient. Medication is scheduled for 08:30. Pharmacy is adjusting times, so patient can have morning dose now.
[2021-12-24] MEDS: clonazePAM 0.5 MG TAB PO (05:15)
[2021-12-24] MEDS: Benzocaine 20% Gel 30 GM JAR MM ×2 (05:33→08:56)
[2021-12-24] MEDS: Omeprazole 20 MG CAPCR 40 MG PO (08:19)
[2021-12-24 08:41] VITALS: BP 152/105; PULSE 77; RESP 18; TEMP 36.7; O2SAT 96
--- NOTE | 2021-12-24 12:55 | W.PM.DS.N ---
Date of service: 12/24/21 Time of Service: 12:55 DS: Diagnosis Discharge Diagnosis (1) Homicidal ideation: Status: Acute (2) Psychiatric care: Status: Acute (3) Discharge planning issues: Status: Acute Discharge Plan Disposition Patient Disposition: HOME Condition: Stable Discharge Details Reason For Visit: Suicidal Ideation Admit Date/Time: 12/23/21 12:49 Admit Provider: Sunny Livingston Attending Provider: Sunny Livingston Primary Care Provider: Feliciano Pierson Hospital Course Hospital Course: Carloz is a 31 year old male patient that was brought to the emergency room for psychiatric evaluation after sending threatening bodily harm to his father. His father called police. He was seen there, denied wanting to hurt anyone, although did admit to writing/sending the text messages. His drug screen was positive for THC. he denies other drugs, alcohol and tobacco. He denies any suicidal ideation. He is here voluntarily. He has a dentist appointment at [facility] at 3:30 PM to repair a tooth that was broken at his last dentist appointment. He has spoken with karla beltran and [facility] and they have devised a safety plan. The plan includes him being esorted by [facility] to the dentist and then he will be returned to the emergency deparment for observation until he is accepted at a psychiatric facility. He states he doesn't want to hurt anyone or himself. He agrees to this plan. He is being discharge to [facility] karla. Reviewed with Dr. Livingston Keyes Meds and New Rx's Prescriptions: Continued clonazepam 0.5 mg Tablet 0.5 mg PO TID omeprazole 40 mg Capsule,Delayed Release(Dr/Ec) 40 mg PO DAILY AM Discharge Instructions Additional Instructions: Go to your prearranged dental appointment, escorted by NEDRA, and return to the [facility] deparment when the appointment is completed. Stand Alone Forms: Nursing Discharge Form Referrals: Feliciano Pierson [Primary Care Provider] - (Please call Friday to make a follow up appointment) Activity:: Activity as Tolerated Equipment/Supplies:: No Equipment Needed Diet:: As Tolerated Discharge Orders Discharge Orders: Discharge Order (Routine); Ordered 12/24/21 Ordered By: Alexandria Phelan Discharge Data Discharge Date/Time-TO BE ENTERED AT DEPARTURE: 12/24/21 14:12 DS: Summary Time Spent with Patient providing and/or coordinating discharge services: Less than 30 minutes Status at Discharge Functional status at discharge: independent ambulation Overall status at discharge: patient is progressing back to baseline Mental Status: mental status grossly normal Speech and Movement: speech and movement normal Mood: congruent mood Affect: normal affect Exam Psych Mental Status: mental status grossly normal Speech and Movement: speech and movement normal Mood: congruent mood Affect: normal affect DS: Data Vitals/I&O Vitals and I&O: Vital Signs Temperature 36.7 C 12/24/21 08:41 Temperature Source Tympanic 12/24/21 08:41 Pulse 77 12/24/21 08:41 Pulse Rhythm Regular 12/24/21 09:41 Respiratory Rate 18 12/24/21 08:41 Respiratory Effort Non-Labored 12/24/21 09:41 Respiratory Depth Normal 12/24/21 09:41 Respiratory Pattern Normal 12/24/21 09:41 Blood Pressure 152/105 H 12/24/21 08:41 Pulse Oximetry 96 12/24/21 08:41 Oxygen Delivery Method Room Air 12/24/21 08:41 Oxygen Flow Rate 0 12/24/21 08:41 Pain Level 7 12/24/21 08:41 Comment 12/24/21 08:41 Intake & Output 12/23/21 12/24/21 12/24/21 23:59 11:59 23:59 Intake Total 480 / 480 610 / 610 Balance 480 / 480 610 / 610 Weight 90.718 kg Intake: Oral 480 / 480 610 / 610 Other: Urine Color Yellow Urine Appearance Clear Comment voided independently in toilet Voiding Methods Toilet Toilet Data Completed and Pending Labs on day of discharge: Labs from last 24 hours 12/23/21 12:49 SARS-CoV-2 (PCR) Negative PFSH All Active Problems Discharge planning issues (Acute) Homicidal ideation (Acute) Psychiatric care (Acute) Social History Smoking/Tobacco Use Status: Never Smoking risk assessment performed?: Yes Alcohol Intake: never Drug use: Current Sobriety Substance use type: marijuana Details: Stopped marijuana 1 week- 2 weeks ago Do you feel safe at home: No Do you feel safe in your relationship?: Yes
--- NOTE | 2021-12-24 16:48 | PDOC.CMDIS ---
- If Service Date Differs Date of service: 12/24/21 Time of Service: 16:48 LACE Index Scoring Tool - Questions: Length of Stay (in days): 1 Acuity (Admit via E.D.?): Yes E.D. Visits: 3 - Answers: Total Score: 7 Risk of Readmission: Low Risk Care Management Discharge Reason for Hospitalization: homicidal ideation Discharge Plan: Carloz denied SI/HI today, and stated that his HI was situational, due to a fight with his father. He stated that he is agreeable to having treatment for his mental health, but he does not feel that he will be able to engage with treatment, as he is having a lot of tooth pain. He had an appointment at his dentist's office to have this attended to, this afternoon. He was screened by [facility] staff, who created a safety plan for him to discharge to the community, attend to his tooth pain, and then return for treatment. CM explained that if he is discharged on a safety plan, and returns for treatment, he will need to go through the ED, and he may have a longer period of observation in the ED than on this visit. CM coordinated [facility] transport home, and [facility] planned to assist him with transportation to his dentist appointment. He was cooperative, and agreeable to this plan. Patient/Family Education Needs: Review discharge instructions and limitations, discussion of self care needs including ask me three. Services Needed at Discharge: Transportation ([facility] private car)
== END 2021-12-24 14:12 | disposition home or self-care (01) | DRG 880 ==
LOC: ER 12:56 → MS 13:26
PROVIDERS: Admitting Provider Internal Medicine; Emergency Provider Registered Nurse Emergency; PCP Physician Assistant; Visit Provider Internal Medicine
DX: F99 Mental disorder, not otherwise specified (principal); R45.851 Suicidal ideations; R45.850 Homicidal ideations; K02.9 Dental caries, unspecified; F12.90 Cannabis use, unspecified, uncomplicated; Z87.891 Personal history of nicotine dependence; Z79.899 Other long term (current) drug therapy
CPT/HCPCS: 36415; 80053; 80307; 87635; 99285; 80320; 80329; 81003; 84443; 85025; 99222; 99239

== ENCOUNTER 2021-12-24 16:29 | Emergency (ER) | payer MEDICAID, SELFPAY ==
[2021-12-24 16:35] VITALS: BP 150/91; PULSE 99; RESP 16; TEMP 37; O2SAT 96
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
[2021-12-24] MEDS: LORazepam 1 MG TAB PO (17:06)
[2021-12-24 18:40] LABS: Source Nasal/Nares
[2021-12-24 19:30] LABS: COVID-19 PCR Negative (Negative)
[2021-12-24] MEDS: clonazePAM 0.5 MG TAB PO (20:01)
--- NOTE | 2021-12-24 20:11 | PDOC.MHCN ---
Date of service: 12/24/21 Time of Service: 17:00 Mental Health Crisis Note Presenting Issue How did you arrive at the ED and why did you come: Client arrived to seek voluntary placement after being discharged so he could go to dentist appointment. Precipitating Factors Client denies SI/HI, intent and plan. Disposition BEHAVIOR: Client is sitting in hospital bed dressed in proper paper hospital attire when this ticket writer arrives via zoom. Client appears to be anxious,however is cooperative with this ticket writer during assessment. EYE CONTACT: minimal MOOD: depressed AFFECT: flat APPETITE: poor SLEEP(trouble falling/staying asleep: poor Plan Client will remain at [facility] ED on voluntary status pending admission to an inpatient facility. [facility] stated that they would have a bed available tomorrow. This ticket writer will send referral to [facility]. Signature Clinician[facility].
[2021-12-25] MEDS: LORazepam 1 MG TAB (03:56)
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
[2021-12-25] MEDS: clonazePAM 0.5 MG TAB PO ×2 (09:05→14:44)
[2021-12-25] MEDS: Omeprazole 20 MG CAPCR 40 MG PO (09:05)
--- NOTE | 2021-12-25 09:19 | NUR.NOTE ---
Nursing Note: [facility] not meet requirements for placement. Spoke with Care management and [facility] will be contacted to reassess and set up a safety plan and arrange out patient services
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
[2021-12-25 16:07] VITALS: BP 125/84; PULSE 83; RESP 16; TEMP 36.7; O2SAT 95
== END 2021-12-25 16:42 | disposition short-term general hospital (02) ==
PROVIDERS: Emergency Medicine; Emergency Provider Physician Assistant; PCP Physician Assistant
DX: F41.9 Anxiety disorder, unspecified (principal)
CPT/HCPCS: 87635; 99285

== ENCOUNTER 2022-02-26 23:56 | Observation (INO) | payer MEDICAID, SELFPAY ==
--- NOTE | 2022-02-27 00:10 | W.ED.GENAD ---
Discharge Plan Disposition Patient Disposition: [facility] INPATIENT Condition: Stable Discharge Details Clinical Impression: Depression with suicidal ideation Admit Date/Time: 02/27/22 12:31 Admit Provider: Jodi Irwin Attending Provider: Jodi Irwin Primary Care Provider: Feliciano Pierson ED Provider: Remy Guevara Discharge Data Discharge Date/Time-TO BE ENTERED AT DEPARTURE: 02/27/22 15:54 Medical Decision Making 31-year-old male states for the past 10 days he has been struggling with his mood. He is felt hopeless and wants to end it all. He has no specific suicidal thoughts. He states he also does have some anger towards 5 other specific people but no specific plans to hurt them or himself. States has been taking his medications including Abilify and clonazepam. He feels like his blood pressure has been high and he has been prescribed clonidine as well. Screening medical examination and smart medical clearance performed. Given his recent report of elevated blood pressure some screening laboratories were obtained. Patient medically stable and appropriate for interview by mental health lease out worker. Patient will seek voluntary inpatient psychiatric treatment. HPI General Mode of arrival: ambulatory. Date/Time Provider Initiated Documentation: 02/26/22 23:57. Limitations to Documentation: no limitations. Information obtained by: patient. History of Present Illness 31 year old M presents to the emergency department with the chief complaint of Suicidal and homicidal ideation, described as similar to prior episodes, and is localized to the head. Patient started experiencing this day(s) and it has been constant. No relieving factors improve symptom(s), No exacerbating factors reported . Patient notes denies fever/chills, headaches, syncope and weakness. Patient did receive the following treatments prior to arrival, none Related Data Home Medications Medication Instructions Recorded Confirmed clonazepam 0.5 mg tablet 0.5 mg PO TID PRN 11/05/21 02/27/22 omeprazole 40 mg capsule,delayed 40 mg PO DAILY AM 11/05/21 02/27/22 release aripiprazole 10 mg tablet 1 tab PO QPM 02/27/22 02/27/22 clonidine HCl 0.1 mg tablet 1 tab PO DAILY 02/27/22 02/27/22 Allergies Allergy/AdvReac Type Severity Reaction Status Date / Time No Known Allergies Allergy Unverified 02/27/22 07:18 General NATHANIEL: 2 PFSH All Active Problems (Updated 02/27/22 @ 12:36 by Dawn Munguia NP) Alcohol intoxication (Acute) Depression with suicidal ideation (Acute) Homicidal ideation (Acute) Social History Smoking/Tobacco Use Status: Never Smoking risk assessment performed?: Yes Alcohol Intake: never Drug use: Current Sobriety Substance use type: marijuana Details: Stopped marijuana 1 week- 2 weeks ago Do you feel safe at home: No Do you feel safe in your relationship?: Yes Exam Narrative Exam Narrative: GEN: awake, alert, oriented 3. Pleasant, well groomed, interactive. HEAD: Normocephalic, atraumatic ENT: Mucous membranes moist, oropharynx unremarkable, External ear exam unremarkable EYES: PERRL, EOMI NECK: Full ROM, no NASIR, no menigismus CHEST/RESP: Nontender, clear to auscultation bilateral, no wheeze/rhonchi/rales CARDIOVASCULAR: RRR, no murmur, rub bernard. 2+ Rad pulse bilateral ABDOMEN: Soft, nontender, no mass. +Bowel sounds EXT: Full ROM, no edema, no rash Neuro: Grossly normal neurologic exam, conversant, interactive. Psych: Speech fluent, thoughts congruent, affect tearful and depressed Sign Out Sign Out Data: Sign Out Comment: Voluntary. Depressed/suicidal Last updated by Lefty Stubbs MD at 02/27/22 02:56
[2022-02-27 00:27] VITALS: BP 147/99; PULSE 71; RESP 18; TEMP 36.8; O2SAT 97
[2022-02-27 00:32] LABS: Abs Immature Grans 0.02 10^3/uL (0.0-0.06); Absolute Basophil Count 0.04 10^3/uL (0.0-0.2); Absolute Eosinophil Count 0.07 10^3/uL (0.0-0.7); Absolute Lymphocyte Count 4.21 10^3/uL (1.2-3.4); Absolute Monocyte Count 0.53 10^3/uL (0.1-0.8); Absolute Neutrophil Count 3.95 10^3/uL (1.2-6.7); Basophils % 0.5; Eosinophils % 0.8; HCT 43.9 % (40.0-50.0); HGB 15.1 g/dL (13.5-17.5); Immature Grans % 0.2; Lymphocytes % 47.7; MCH 30.6 pg (27.0-33.0); MCHC 34.4 % (32.0-36.0); MCV 89 fL (80-95); MPV 9.7 fL (8.0-11.0); Neutrophils % 44.8; Platelet Count 287 10^3/uL (130-400); RBC 4.93 10^6/uL (4.36-5.78); RDW 12.2 % (11.8-14.1); RDW-SD 39.7 fL; WBC 8.82 10^3/uL (4.4-10.8)
[2022-02-27] MEDS: LORazepam 1 MG TAB PO (00:34)
[2022-02-27 00:45] LABS: *AMPHETAMINES SCREEN URINE Negative (Negative); *BARBITURATES SCREEN URINE Negative (Negative); *BENZODIAZEPINES SCREEN URINE Negative (Negative); Cannabinoids THC Negative (Negative); Cocaine Screen,Urine Negative (Negative); METHADONE URINE SCREEN Negative (Negative); OPIATES URINE SCREEN Negative (Negative)
[2022-02-27 00:46] LABS: Tricyclic Antidepressants Negative (Negative)
[2022-02-27 01:01] LABS: ALT 39 U/L (16-63); AST 15 U/L (15-37); Albumin 4.4 g/dL (3.4-5.0); Alkaline Phosphatase 63 U/L (46-116); Anion Gap 7.4 mmol/L (3-11); BUN 11 mg/dL (7-18); Bilirubin, Total 0.3 mg/dL (0.2-1.0); CO2 28.6 mmol/L (21.0-32.0); CREATININE 0.9 mg/dL (0.70-1.30); Calcium 9.2 mg/dL (8.5-10.1); Chloride 106 mmol/L (98-107); ETHANOL BLOOD 186.6 mg/dL (<10); Glucose 113 mg/dL (74-106); Potassium 3.6 mmol/L (3.5-5.1); Salicylate < 2.8 mg/dL (<2.8); Sodium 142 mmol/L (136-145); TSH (W/Ref FT4) 1.83 uIU/mL (0.36-3.74); Total Protein 8.1 g/dL (6.4-8.2)
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
[2022-02-27 01:08] LABS: Acetaminophen < 2 ug/mL (10-30)
[2022-02-27 01:16] LABS: Source Nasal/Nares
[2022-02-27 01:47] LABS: COVID-19 PCR Negative (Negative)
--- NOTE | 2022-02-27 08:44 | PDOC.CMSAFED ---
- If Service Date Differs Date of service: 02/27/22 Time of Service: 08:44 Care Management Safety Plan Status: Voluntary - Reason for Wait Reason for Wait: Inpatient Admission VOLUNTARY FOR INPATIENT PSYCHIATRIC STABILIZATION. Patient is appropriate in all interactions since arriving at [facility]; Pt has demonstrated appropriate coping and communication skills, has articulated his or her needs and concerns and is fully engaged during staff interactions. Safety plan has been established with patient, and care team, to adhere to patient goals, identify restrictions based on behavioral status, address nutrition, and determine allowed personal belongings, tools for hygiene and personal care. Determine level of activity including ambulation, level of supervision, visitors, and determine privileges based on behaviors and level of engagement by pt. SAFETY PLAN: 1. Will remain on suicide precautions. In Paper Clothes 2. Will remain in room under direct supervision of one-on-one staff at all times provided by [employer], FINANCE AND ADMINISTRATION MANAGER, INTERIOR DESIGN PROFESSOR supervisor building maintenance. 3. May have paper cups, plates, finger foods as well as a cardboard spoon with which to eat meals. 4. Follow [facility] Management of the Admitted Behavioral Health Patient policy. 5. Comfort bath system only, shower permitted with escort at RN discretion. 6. No personal belongings-soft items permitted at RN discretion. 7. Visitors-none at this time. 8. Activities: soft cart items, music tablet, television and other activities at RN discretion. 9. Bathroom privileges with escort in the ED, available in room without limitation on M/S. 10. Phone: contact limited to family at this time, via cordless phone at RN discretion. 11. Due to VOLUNTARY status, if patient wishes to leave [facility], staff will contact [facility] Crisis Screener ([phone]) and On-Call Workshop Manager ([phone]) as soon as possible. In the event of elopement, notify [place] [employer] ([phone]). Patient is currently voluntarily at [facility] and seeking inpatient admission when a bed becomes available. [facility] Frontline Normalizer will continue seeking placement. Please contact the Client Services Administrator Workshop Manager ([phone]) and [facility] Normalizer ([phone]) for any needed changes in the Safety Plan. Safety plan has been provided to interdepartmental care team.
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
--- NOTE | 2022-02-27 12:21 | ED.PROG_ITS ---
Date of service: 02/27/22 Time of Service: 12:21 Medical Decision Making Patient has remained stable here seeking voluntary placement for suicidality. Patient has remained stable this morning. I spoke with the perennial house manager who was sitting as patient observer to question if hospitalizing to transition bed f easible given resources and she noted that it was. Will discuss case with hospitalist. Sign Out Sign Out Data: Sign Out Comment: Voluntary. Depressed/suicidal Last updated by Lefty Stubbs MD at 02/27/22 02:56 Discharge Plan Disposition Patient Disposition: [facility] INPATIENT Condition: Stable Discharge Details Clinical Impression: Depression with suicidal ideation Primary Care Provider: Fleiciano Pierson ED Provider: Remy Guevara Home Meds and New Rx's Prescriptions: No Action clonazepam 0.5 mg Tablet 0.5 mg PO TID PRN omeprazole 40 mg Capsule,Delayed Release(Dr/Ec) 40 mg PO DAILY AM clonidine HCl 0.1 mg tablet 1 tab PO DAILY Label Comments: TAKE ONE TABLET BY MOUTH EVERY DAY aripiprazole 10 mg tablet 1 tab PO QPM Label Comments: TAKE 1 TABLET ORALLY EVERY NIGHT
--- NOTE | 2022-02-27 12:35 | HPE_ITS ---
Date of service: 02/27/22 Time of Service: 12:35 Assessment and Plan Assessment and plan (1) Depression with suicidal ideation: Status: Acute Assessment and plan: medically cleared in the ED and screened by mental health. plan is for inpatient voluntary psychiatric admission no behavioral issues while being held in the ED. will be moved to transitional unit until bed available. continue CPSO and behavioral care plan mental health and care management will continue to follow (2) Homicidal ideation: Status: Acute Assessment and plan: see above (3) Alcohol intoxication: Status: Acute Assessment and plan: sober now and still with depression and suicidal ideation. discussed with DR Irwin. History of Present Illness History of Present Illness Chief Complaint: suicidal ideation Narrative: This is a 31-year-old male who presented to the ED with 10 days of feeling hopeless and wants to end it all per ED record.? He denies suicide plan.? He states he also does have some anger towards 5 other specific people but no specific plans to hurt them or himself. States has been taking his medications as prescribed, including Abilify and clonazepam.? He reported his blood pressure has been high and he has been prescribed clonidine as well. Screening medical examination and smart medical clearance performed.? Given his recent report of elevated blood pressure some screening laboratories were obtained.? Patient medically stable and appropriate for interview by mental health welfare case worker.? Patient will seek voluntary inpatient psychiatric dave atment. He was intoxicated on arrival with LIBRADO of 180 but continues to report his symptoms of depression and would like to continue to pursue inpatient psychiatric management. He has had no behavioral issues while awaiting placement. Hospitalist has been asked to move him to transition unit and assume care. Orders placed. Review of Systems All systems reviewed & are unremarkable except as noted in HPI and below PFSH All Active Problems (Updated 02/27/22 @ 12:36 by Dawn Munguia NP) Alcohol intoxication (Acute) Depression with suicidal ideation (Acute) Homicidal ideation (Acute) Social History Smoking/Tobacco Use Status: Never Smoking risk assessment performed?: Yes Alcohol Intake: never Drug use: Current Sobriety Substance use type: marijuana Details: Stopped marijuana 1 week- 2 weeks ago Do you feel safe at home: No Do you feel safe in your relationship?: Yes Meds Allergies and Home Medications Allergies Allergy/AdvReac Type Severity Reaction Status Date / Time No Known Allergies Allergy Unverified 02/27/22 07:18 Home Medications Medication Instructions Recorded Confirmed Type clonazepam 0.5 mg tablet 0.5 mg PO TID PRN 11/05/21 02/27/22 History omeprazole 40 mg capsule,delayed 40 mg PO DAILY AM 11/05/21 02/27/22 History release aripiprazole 10 mg tablet 1 tab PO QPM 02/27/22 02/27/22 History clonidine HCl 0.1 mg tablet 1 tab PO DAILY 02/27/22 02/27/22 History Exam Const General: cooperative, comfortable, no acute distress and disheveled Nutritional Appearance: average body habitus Orientation: alert, awake and oriented x3 HENMT Head: normal to inspection, normocephalic and atraumatic Mouth: oral mucosae normal Resp Effort & Inspection: normal respiratory effort Cardio Rate: regular rate Rhythm: regular rhythm Skin General skin exam: no rashes or lesions noted Neuro General: patient alert, patient awake, patient oriented x3 and no focal motor deficits Extrem General: normal to inspection, full ROM and no pedal edema Psych Appearance: disheveled Mental Status: mental status grossly normal Speech and Movement: speech and movement normal Mood: congruent mood Affect: blunted Attitude: cooperative Results Labs Result diagrams: 02/27/22 00:27 02/27/22 00:27 Labs: Laboratory Results - last 24 hr 02/27/22 02/27/22 02/27/22 00:20 00:27 00:27 WBC RBC Hgb Hct MCV MCH MCHC RDW Plt Count MPV Immature Gran % Neutrophils % Lymphocytes % Monocytes % Eosinophils % Basophils % Nucleated RBC % Absolute Neutrophils Absolute Lymphocytes Absolute Monocytes Absolute Eosinophils Absolute Basophils Sodium 142 Potassium 3.6 Chloride 106 Carbon Dioxide 28.6 Anion Gap 7.4 BUN 11 Creatinine 0.9 Estimated GFR/1.73 m2 >= 60.00 Glucose 113 H Calcium 9.2 Total Bilirubin 0.3 AST 15 ALT 39 Alkaline Phosphatase 63 Total Protein 8.1 Albumin 4.4 TSH 1.83 Salicylates < 2.8 Urine Opiates Screen Negative Urine Methadone Screen Negative Acetaminophen < 2 Ur Barbiturates Screen Negative Ur Tricyclics Screen Negative Ur Amphetamines Screen Negative U Benzodiazepines Scrn Negative Urine Cocaine Screen Negative Ur THC Screen Negative Ethyl Alcohol 186.6 H COVID-19 Source SARS-CoV-2 (PCR) 08/24/22 08/24/22 00:27 01:10 WBC 8.82 RBC 4.93 Hgb 15.1 Hct 43.9 MCV 89 MCH 30.6 MCHC 34.4 RDW 12.2 Plt Count 287 MPV 9.7 Immature Gran % 0.2 Neutrophils % 44.8 Lymphocytes % 47.7 Monocytes % 6.0 Eosinophils % 0.8 Basophils % 0.5 Nucleated RBC % 0.0 Absolute Neutrophils 3.95 Absolute Lymphocytes 4.21 H Absolute Monocytes 0.53 Absolute Eosinophils 0.07 Absolute Basophils 0.04 Sodium Potassium Chloride Carbon Dioxide Anion Gap BUN Creatinine Estimated GFR/1.73 m2 Glucose Calcium Total Bilirubin AST ALT Alkaline Phosphatase Total Protein Albumin TSH Salicylates Urine Opiates Screen Urine Methadone Screen Acetaminophen Ur Barbiturates Screen Ur Tricyclics Screen Ur Amphetamines Screen U Benzodiazepines Scrn Urine Cocaine Screen Ur THC Screen Ethyl Alcohol COVID-19 Source Nasal/Nares SARS-CoV-2 (PCR) Negative Last Vital Signs Temp 36.8 C 02/27/22 00:27 Pulse 71 02/27/22 00:27 Resp 18 02/27/22 00:27 BP 147/99 H 02/27/22 00:27 Pulse Ox 97 02/27/22 00:27
[2022-02-27 13:53] VITALS: BP 138/98; PULSE 88; RESP 16; TEMP 36.7; O2SAT 96
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
[2022-02-27 16:50] VITALS: BP 138/98; PULSE 88; RESP 16; TEMP 36.7; O2SAT 96
[2022-02-27 16:55] VITALS: BP 138/98; PULSE 88; RESP 16; TEMP 36.7; O2SAT 96
[2022-02-27] MEDS: Omeprazole 20 MG CAPCR 40 MG PO (19:17)
[2022-02-27] MEDS: clonazePAM 0.5 MG TAB PO (19:37)
[2022-02-27] MEDS: ARIPiprazole 5 MG TAB 10 MG PO (19:37)
[2022-02-28 07:26] VITALS: BP 142/94; PULSE 72; RESP 14; TEMP 36.1; O2SAT 97
[2022-02-28] MEDS: Omeprazole 20 MG CAPCR 40 MG PO (08:08)
[2022-02-28] MEDS: cloNIDine 0.1 MG TAB PO (08:08)
--- NOTE | 2022-02-28 09:20 | PDOC.CMSAFE ---
- If Service Date Differs Date of service: 02/28/22 Time of Service: 09:20 Care Management Safety Plan Status: Voluntary
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
--- NOTE | 2022-02-28 12:09 | W.PM.DS.N ---
Date of service: 02/28/22 Time of Service: 12:11 DS: Diagnosis Discharge Diagnosis (1) Depression with suicidal ideation: Status: Acute (2) Homicidal ideation: Status: Acute (3) Alcohol intoxication: Status: Acute Discharge Plan Disposition Patient Disposition: [facility] Condition: Stable Discharge Details Reason For Visit: Suicidal Ideation Admit Date/Time: 02/27/22 12:31 Admit Provider: Jodi Irwin Attending Provider: Jodi Irwin Primary Care Provider: Feliciano Pierson Hospital Course Hospital Course: This is a 31-year-old male who presented to the ED with 10 days of feeling hopeless and wants to end it all per ED record.? He denies suicide plan.? He states he also does have some anger towards 5 other specific people but no specific plans to hurt them or himself. States has been taking his medications as prescribed, including Abilify and clonazepam.? He reported his blood pressure has been high and he has been prescribed clonidine as well. Screening medical examination and smart medical clearance performed.? Given his recent report of elevated blood pressure some screening laboratories were obtained.? Patient medically stable and appropriate for interview by mental health youth worker.? Patient will seek voluntary inpatient psychiatric treatment. He was intoxicated on arrival with LIBRADO of 180 but continues to report his symptoms of depression and would like to continue to pursue inpatient psychiatric management.? He has had no behavioral issues while awaiting placement. Bed has opened at [facility]. Patient has remained medically stable and being transported by [facility]. discussed with Dr Denson. Home Meds and New Rx's Prescriptions: Continued clonazepam 0.5 mg Tablet 0.5 mg PO TID PRN omeprazole 40 mg Capsule,Delayed Release(Dr/Ec) 40 mg PO DAILY AM clonidine HCl 0.1 mg tablet 1 tab PO DAILY Label Comments: TAKE ONE TABLET BY MOUTH EVERY DAY aripiprazole 10 mg tablet 1 tab PO QPM Label Comments: TAKE 1 TABLET ORALLY EVERY NIGHT Discharge Instructions Instructions: Depression (DC) Stand Alone Forms: Nursing Discharge Form Referrals: Feliciano Pierson [Primary Care Provider] - (upon discharge from inpatient psychiatric) Activity:: Activity as Tolerated Equipment/Supplies:: No Equipment Needed Diet:: As Tolerated Discharge Orders Discharge Orders: Discharge Order (Routine); Ordered 02/28/22 Ordered By: Dawn Munguia DS: Summary Time Spent with Patient providing and/or coordinating discharge services: Less than 30 minutes Status at Discharge Functional status at discharge: independent ambulation Overall status at discharge: patient is back to baseline Mental Status: mental status grossly normal Speech and Movement: speech and movement normal Mood: congruent mood Affect: blunted Exam Const General: cooperative, comfortable, no acute distress and disheveled Nutritional Appearance: average body habitus Orientation: alert, awake and oriented x3 HENMT Head: normal to inspection, normocephalic and atraumatic Mouth: oral mucosae normal Resp Effort & Inspection: normal respiratory effort Cardio Rate: regular rate Rhythm: regular rhythm Skin General skin exam: no rashes or lesions noted Neuro General: patient alert, patient awake, patient oriented x3 and no focal motor deficits Extrem General: normal to inspection, full ROM and no pedal edema Psych Appearance: disheveled Mental Status: mental status grossly normal Speech and Movement: speech and movement normal Mood: congruent mood Affect: blunted Attitude: cooperative DS: Data Vitals/I&O Vitals and I&O: Vital Signs Temperature 36.1 C L 02/28/22 07:26 Temperature Source Tympanic 02/28/22 07:26 Pulse 72 02/28/22 07:26 Pulse Rhythm Regular 02/28/22 07:05 Respiratory Rate 14 02/28/22 07:26 Respiratory Effort Non-Labored 02/28/22 07:05 Respiratory Depth Normal 02/28/22 07:05 Respiratory Pattern Normal 02/28/22 07:05 Blood Pressure 142/94 H 02/28/22 07:26 Blood Pressure Position Sitting 02/27/22 00:27 Pulse Oximetry 97 02/28/22 07:26 Oxygen Delivery Method Room Air 02/28/22 07:26 Oxygen Flow Rate 0 02/28/22 07:26 Pain Level 0 02/28/22 07:26 Intake & Output 02/27/22 02/28/22 02/28/22 23:59 11:59 23:59 Intake Total 500 / 500 Output Total Balance 499 / 499 Weight 95.254 kg Intake: Oral 500 / 500 Output: Urine Other: Urine Color Yellow Urine Appearance Clear Clear Urine Odor None Voiding Methods Toilet PFSH All Active Problems (Updated 02/27/22 @ 12:36 by Dawn Munguia NP) Alcohol intoxication (Acute) Depression with suicidal ideation (Acute) Homicidal ideation (Acute) Social History Smoking/Tobacco Use Status: Never Smoking risk assessment performed?: Yes Alcohol Intake: never Drug use: Current Sobriety Substance use type: marijuana Details: Stopped marijuana 1 week- 2 weeks ago Do you feel safe at home: No Do you feel safe in your relationship?: Yes
--- NOTE | 2022-02-28 17:16 | CMDISCH_ITS ---
- If Service Date Differs Date of service: 02/28/22 Time of Service: 17:16 LACE Index Scoring Tool - Questions: Length of Stay (in days): 1 Acuity (Admit via E.D.?): Yes E.D. Visits: 4 - Answers: Total Score: 8 Risk of Readmission: Low Risk Care Management Discharge Reason for Hospitalization: SI/HI Discharge Plan: Carloz will discharge to [facility] via [facility] department, coordinated by CM. Patient/Family Education Needs: Review discharge instructions, discuss Ask Me Three.
== END 2022-02-28 13:05 | disposition short-term general hospital (02) ==
LOC: ER 02-27 12:24 → MS 02-27 16:06
PROVIDERS: Emergency Medicine; Admitting Provider Internal Medicine; Emergency Provider Student in an Organized Health Care Education/Training Program; PCP Physician Assistant; Visit Provider Internal Medicine
DX: F32.A Depression, unspecified (principal); R45.851 Suicidal ideations; R45.850 Homicidal ideations; Z20.822 Contact with and (suspected) exposure to COVID-19; Z79.899 Other long term (current) drug therapy; F10.129 Alcohol abuse with intoxication, unspecified; Y90.6 Blood alcohol level of 120-199 mg/100 ml
CPT/HCPCS: 80053; 80307; 87635; 99285; 80320; 80329; 84443; 85025; 99217; 99219; 99284; G0378

== ENCOUNTER 2022-05-15 16:32 | Outpatient (REF) | payer MEDICAID, SELFPAY ==
[2022-05-15 21:53] LABS: Hemoglobin A1C 5.4 % (<5.7)
== END 2022-05-15 16:33 | disposition home or self-care (01) ==
LOC: NCHCN 16:32
PROVIDERS: PCP Physician Assistant; Visit Provider Physician Assistant
DX: R73.9 Hyperglycemia, unspecified (principal)
CPT/HCPCS: 83036

== ENCOUNTER 2022-09-13 15:21 | Outpatient (REF) | payer MEDICAID, SELFPAY ==
[2022-09-13 15:46] LABS: Glucose 108 mg/dL (74-106)
== END 2022-09-13 15:22 | disposition home or self-care (01) ==
LOC: NCHCN 15:21
PROVIDERS: PCP Physician Assistant; Visit Provider Physician Assistant
DX: R73.9 Hyperglycemia, unspecified (principal)
CPT/HCPCS: 82947

== ENCOUNTER 2022-09-18 12:12 | Emergency (ER) | payer MEDICAID, SELFPAY ==
[2022-09-18 12:19] VITALS: BP 141/99; PULSE 104; RESP 16; TEMP 36.8; O2SAT 97
--- NOTE | 2022-09-18 12:30 | DI.CT_ITS ---
Exam(s) CT ABDOMEN PELVIS W EXAM: CT ABDOMEN PELVIS W CLINICAL HISTORY: abdominal pain, right lower TECHNIQUE: Imaging Protocol: Axial computed tomography images with coronal and sagittal reformatted images were created and reviewed CONTRAST MATERIAL: Intravenous: Omnipaque 350 Contrast volume:100 mL Oral: No COMPARISON: CT CT CHEST/ABD/PEL W from 11/05/2021 FINDINGS: The examination is limited due to patient motion artifact. ABDOMEN: Lung Bases: Normal where visualized. Liver: Normal density. No measurable mass. Portal, Superior Mesenteric, and Splenic Veins: Unremarkable. Gallbladder and Biliary Tract: No radiodense calculus or dilation. Pancreas: Normal density, no abnormal calcifications or inflammatory process. Spleen: Normal. Adrenals: No masses seen. Kidneys: Normal size, contour and axis. No radiodense stones or obstructive uropathy. No masses seen. Abdominal Aorta: Abdominal portion non-dilated. Bowel: No obstruction or bowel wall thickening. Appendix is unremarkable. Peritoneal Cavity: No ascites, collection or mesenteric inflammatory response. No free air. Lymph Nodes: Within normal limits. Bones: Within normal limits for the patient's age. Soft Tissues: Unremarkable. PELVIS: Bladder: Symmetric distention, no gross wall thickening. Reproductive Organs: Unremarkable as visualized. Lymph Nodes: Within normal limits. Bones: Within normal limits for the patient's age. IMPRESSION: 1. No acute abdominal or pelvic process. 2. Findings were discussed with Dr. Smith at 1:44 p.m. on 09/18/2022. RADIATION DOSE DELIVERED: 1,384.74mGy.cm Total DLP DATA REPOSITORY: All CT scans at this facility are submitted to the National Radiology Data Registry (NRDR) Dose Index Registry (DIR) with the [employer] ([employer]). RADIATION OPTIMIZATION: All CT scans at this facility use at least one of these dose optimization te chniques: automated exposure control; mA and/or kV adjustment per patient size (includes targeted exa ms where dose is matched to clinical indication); or iterative reconstruction.
--- NOTE | 2022-09-18 12:36 | ED.GENADUL_ITS ---
Discharge Plan Disposition Patient Disposition: Home Condition: Stable Discharge Details Clinical Impression: Abdominal pain Primary Care Provider: Feliciano Pierson ED Provider: Junaid Smith Home Meds and New Rx's Prescriptions: New sucralfate [Carafate] 1 gram tablet 1 g PO BID Qty: 20 0RF Continued clonazepam 0.5 mg Tablet 0.5 mg PO TID PRN omeprazole 40 mg Capsule,Delayed Release(Dr/Ec) 40 mg PO DAILY AM clonidine HCl 0.1 mg tablet 1 tab PO DAILY Patient Comments: TAKE ONE TABLET BY MOUTH EVERY DAY aripiprazole 10 mg tablet 1 tab PO QPM Patient Comments: not taking hydroxyzine pamoate [Vistaril] 25 mg Capsule 25 mg PO DAILY Discharge Instructions Instructions: Abdominal Pain (ED) Additional Instructions: your cat scan and blood work did not show concerning findings at this time you can increase to 80mg omeprazole daily follow up with your primary care provider in 1-2 weeks if symptoms persist if you feel more ill, have severe worsening pain or persistent vomiting return to the emergency department Medical Decision Making 31 yo male with hx of gerd comes in with chief complaint of intermittent abdominal pain for 2-3 weeks. HE states he has chronic dental pain that he will take tylenol and ibuprofen for. HE states he at most takes 1000mg tylenol and 800mg ibuprofen a day. He doesn't drink alcohol and denies drug use. He has noticed a dull and now sharp pain in the right side of his abdomen. HE denies vomiting, chest pain, dyspnea, fevers/chills. HE arrives stable speaking clearly in no distress. HE is tender in the ruq but is more tender in the rlq, no peritoneal signs, no rebound. Given the location of his pain will obtain cbc, cmp, lipase and ct abdomen pelvis to evaluate for cholecystitis vs appendicitis. labs and imaging unremarkable, he remains stable, minimal epigastric tenderness now and rlq tenderness, normal appendix on ct. HE does state he's had ulcers in his esophagus and stomach before, used to be on carafate before and would like to try this again. He will f/u with his pcp, return precautions given Differential Diagnosis Differential Diagnosis: cholecystitis, appendicitis, pancreatitis, gastritis Medical Records Medical records reviewed: Yes I reviewed the patient's medical records. Imaging Data Radiologic Study: Attestation: I personally reviewed and interpreted this imaging study as follows: Imaging: CT Scan Radiologist's impression: no acute findings Lab Data Lab results reviewed: Yes I reviewed the patient's lab results. HPI General Mode of arrival: ambulatory . Date/Time Provider Initiated Documentation: 09/18/22 12:13 . Limitations to Documentation: no limitations . Information obtained by: patient . History of Present Illness 31 year old M presents to the emergency department with the chief complaint of right sided abdominal pain, described as moderate, Quality is described as aching and sharp, and is localized to the abdomen. Patient reports no radiation. Patient started experiencing this week(s) (2) and it has been intermittent. No relieving factors improve symptom(s), No exacerbating factors reported . Patient notes denies chest pain and fever/chills. Related Data Home Medications Medication Instructions Recorded Confirmed clonazepam 0.5 mg tablet 0.5 mg PO TID PRN 11/05/21 09/18/22 omeprazole 40 mg capsule,delayed 40 mg PO DAILY AM 11/05/21 09/18/22 release aripiprazole 10 mg tablet 1 tab PO QPM 02/27/22 02/27/22 clonidine HCl 0.1 mg tablet 1 tab PO DAILY 02/27/22 09/18/22 hydroxyzine pamoate 25 mg capsule 25 mg PO DAILY 09/18/22 09/18/22 (Vistaril) sucralfate 1 gram tablet (Carafate) 1 g PO BID #20 tabs 09/18/22 Previous Rx's Medication Instructions Recorded sucralfate 1 gram tablet (Carafate) 1 g PO BID #20 tabs 09/18/22 Allergies Allergy/AdvReac Type Severity Reaction Status Date / Time No Known Allergies Allergy Unverified 09/18/22 12:27 General Stated Complaint: Abd Prob NATHANIEL: 3 Review of Systems All systems reviewed & are unremarkable except as noted in HPI and below Constitutional Constitutional: Denies chills, Denies fever(s) and Denies weakness Cardiovascular Cardiovascular: Denies chest pain and Denies dyspnea Respiratory Respiratory: Denies cough and Denies dyspnea Gastrointestinal Gastrointestinal: Denies vomiting Genitourinary Genitourinary: Denies dysuria Integumentary/Breasts Skin/Breast: Denies rash Neurologic Neurologic: Denies weakness PFSH All Active Problems (Updated 09/18/22 @ 14:24 by Junaid Smith MD) Abdominal pain (Acute) Alcohol intoxication (Acute) Depression with suicidal ideation (Acute) Homicidal ideation (Acute) Social History Smoking/Tobacco Use Status: Never Smoking risk assessment performed?: Yes Alcohol Intake: never Drug use: Current Sobriety Substance use type: marijuana Exam Const General: no acute distress Orientation: alert HENMT Head: normal to inspection Ears: external ears normal General nose exam: external nose normal Mouth: moist mucous membranes Eyes General: appearance normal, both eyes and all related structures Neck Neck: normal visual inspection Resp Effort & Inspection: normal respiratory effort and able to speak in complete sentences Cardio Rate: regular rate GI Palpation: soft and tender Skin General skin exam: no rashes or lesions noted Neuro General: patient alert and patient oriented x3 Extrem General: normal to inspection Psych Mental Status: mental status grossly normal Course Vital Signs Vital signs: Vital Signs Temperature 36.8 C 09/18/22 12:19 Pulse 104 H 09/18/22 12:19 Respiratory Rate 16 09/18/22 12:19 Blood Pressure 141/99 H 09/18/22 12:19 Pulse Oximetry 97 09/18/22 12:19 Temperature 36.8 C 09/18/22 12:19 Temperature Source Oral 09/18/22 12:19 Pulse 104 H 09/18/22 12:19 Respiratory Rate 16 09/18/22 12:19 Respiratory Effort Normal 09/18/22 12:29 Blood Pressure 141/99 H 09/18/22 12:19 Blood Pressure Position Sitting 09/18/22 12:19 Pulse Oximetry 97 09/18/22 12:19 Oxygen Delivery Method Room Air 09/18/22 12:19 Oxygen Flow Rate 0 09/18/22 12:19 Pain Level 6 09/18/22 12:19 Comment taking tylenol and ibuprofen for dental pain without change in abd pain 09/18/22 12:19
[2022-09-18] MEDS: Normal Saline 1,000 ML 1000 ML IV (12:53)
[2022-09-18] MEDS: Ketorolac 15 MG/ML VIAL IVP (12:54)
[2022-09-18 13:02] LABS: Bilirubin Negative (Negative); Blood Negative (Negative); Clarity Clear (Clear); Glucose Negative (Negative); Ketones Negative (Negative); Leukocyte Esterase Negative (Negative); Nitrite Negative (Negative); Specific Gravity 1.015 (1.005-1.025); Urobilinogen 0.2 mg/dL (Up to 0.2)
[2022-09-18 13:12] LABS: Abs Immature Grans 0.01 10^3/uL (0.0-0.06); Absolute Basophil Count 0.04 10^3/uL (0.0-0.2); Absolute Eosinophil Count 0.08 10^3/uL (0.0-0.7); Absolute Neutrophil Count 4.49 10^3/uL (1.2-6.7); Basophils % 0.5; Eosinophils % 1.1; HCT 43.2 % (40.0-50.0); HGB 15.3 g/dL (13.5-17.5); Immature Grans % 0.1; Lymphocytes % 30.1; MCH 29.8 pg (27.0-33.0); MCHC 35.4 % (32.0-36.0); MCV 84 fL (80-95); MPV 10.8 fL (8.0-11.0); Monocytes % 6.8; Neutrophils % 61.4; Platelet Count 291 10^3/uL (130-400); RBC 5.13 10^6/uL (4.36-5.78); RDW 11.9 % (11.8-14.1); RDW-SD 36.4 fL; WBC 7.32 10^3/uL (4.4-10.8)
[2022-09-18] MEDS: Normal Saline Flush 10 ML SYR IVP (13:25)
[2022-09-18] MEDS: Normal Saline - Diluent 50 ML VIAL IJ (13:25)
[2022-09-18] MEDS: Omnipaque 350 MG/ML 100 ML BTL IJ (13:26)
[2022-09-18 13:32] LABS: PTT Activated 25.5 sec (21.5-31.9); Prothrombin Time 9.9 sec (9.3-11.0)
[2022-09-18 13:37] LABS: ALT 57 U/L (16-63); AST 35 U/L (15-37); Albumin 4.8 g/dL (3.4-5.0); Alkaline Phosphatase 68 U/L (46-116); Anion Gap 9.2 mmol/L (3-11); BUN 14 mg/dL (7-18); Bilirubin, Total 0.5 mg/dL (0.2-1.0); CO2 26.8 mmol/L (21.0-32.0); Calcium 9.7 mg/dL (8.5-10.1); Chloride 101 mmol/L (98-107); Estimated GFR 103.84 (mL/min/1.73m2); Glucose 107 mg/dL (74-106); Lipase 27 U/L (16-77); Magnesium 1.9 mg/dL (1.8-2.4); Potassium 3.9 mmol/L (3.5-5.1); Sodium 137 mmol/L (136-145); Total Protein 8.5 g/dL (6.4-8.2)
[2022-09-18 14:29] VITALS: BP 143/96; PULSE 90; RESP 16; TEMP 36.9; O2SAT 97
[2022-09-18 15:14] LABS: Acetaminophen < 2 ug/mL (10-30)
== END 2022-09-18 14:36 | disposition home or self-care (01) ==
PROVIDERS: Emergency Provider Emergency Medicine; PCP Physician Assistant
DX: R10.9 Unspecified abdominal pain (principal); K08.89 Other specified disorders of teeth and supporting structures; G89.29 Other chronic pain; R10.816 Epigastric abdominal tenderness; R10.813 Right lower quadrant abdominal tenderness
CPT/HCPCS: 36415; 80053; 83690; 96361; 96374; 99285; 74177; 80329; 81003; 83735; 85025; 85610; 85730; 99284; J1885; J3490